=== PATIENT | female | born 1965 | race Caucasian/White ===

== ENCOUNTER → 2024-08-15 12:34 | Outpatient (REF) | payer OTHER, SELFPAY | LOC: HWWDC 12:34 | PROVIDERS: ATTENDING PHYSICIAN Nurse Practitioner Family; FAMILY PHYSICIAN Internal Medicine | DX: Z12.31 Encounter for screening mammogram for malignant neoplasm of breast (principal) | CPT/HCPCS: 77063; 77067 ==

== ENCOUNTER → 2025-02-11 13:24 | Outpatient (REF) | payer OTHER, SELFPAY | LOC: HWRAD 13:24 | PROVIDERS: ATTENDING PHYSICIAN Obstetrics & Gynecology; FAMILY PHYSICIAN Internal Medicine | DX: N95.0 Postmenopausal bleeding (principal) | CPT/HCPCS: 76830; 76856 ==

== ENCOUNTER 2025-04-23 06:24 | Day surgery (SDC) | payer OTHER, SELFPAY ==
[2025-04-10 09:10] VITALS: BMI 30.6
[2025-04-10 10:47] LABS: Hematocrit 43.4 % (37.0-47.0); Hemoglobin 14.3 g/dL (12.0-16.0); Mean Corp Hgb Conc. 32.9 g/dL (33.0-37.0); Mean Corpuscular Volume 91.6 fL (81.0-99.0); Nucleated Red Blood Cells % 0 %; Platelet Count 302 10^3/uL (130-400); Red Cell Dist. Width 13.3 % (11.5-14.5)
[2025-04-10 12:55] LABS: AST (SGOT) 26 U/L (14-36); Albumin 5.0 g/dl (3.5-5.0); Alkaline Phosphatase 59 U/L (38-126); Blood Urea Nitrogen 20 mg/dl (7-17); Calcium 10.4 mg/dl (8.4-10.2); Carbon Dioxide 28 mmol/L (22-30); Chloride 107 mmol/L (98-107); Estimated Creatinine Clearance 97 ml/min; Glucose 89 mg/dl (70-99); HDL Cholesterol 60 mg/dl; LDL Cholesterol, Calculated 135 mg/dl; Potassium 4.9 mmol/L (3.5-5.1); Sodium 142 mmol/L (135-145); Total Protein 8.2 g/dl (6.3-8.2); Very Low Density Lipoprotein 34 mg/dl (0-30); eGFR > 60.00
[2025-04-10 13:13] LABS: Beta HCG Quantitative < 2.39 mIU/ml
[2025-04-10 13:23] LABS: ALT (SGPT) 22 U/L (0-35)
[2025-04-23] VITALS (7 sets, daily range): BP systolic 111–127; BP diastolic 68–90; BMI 30.6
[2025-04-23] MEDS: NORMOSOL-R/PLASMALYTE-A 1000 IV (10:53)
--- NOTE | 2025-04-23 14:15 | SUR.PHASEI ---
Rec'd sleepy on stretcher, oriented x3 by RN reassured, positioned for comfort, Dr Diaz in
--- NOTE | 2025-04-23 14:21 | SUR.PHASEI ---
More alert, warm blanket to abd, mushtaq well
[2025-04-23] MEDS: MORPHINE SULFATE 2 MG IV (14:25)
--- NOTE | 2025-04-23 14:33 | SUR.PHASEI ---
Cramps cont ,medicated mushtaq well, ice chips given mushtaq well
== END 2025-04-23 15:30 | disposition home or self-care (01) ==
LOC: SDS 06:24
PROVIDERS: ATTENDING PHYSICIAN Obstetrics & Gynecology; FAMILY PHYSICIAN Internal Medicine
DX: N84.1 Polyp of cervix uteri (principal); N95.0 Postmenopausal bleeding
CPT/HCPCS: 58558; 36415; 80053; 80061; 84702; 85025; 86850; 86900; 86901; 88305; 93005

== ENCOUNTER → 2025-08-20 16:18 | Outpatient (REF) | payer OTHER, SELFPAY | LOC: WDC 16:18 | PROVIDERS: ATTENDING PHYSICIAN Obstetrics & Gynecology; FAMILY PHYSICIAN Internal Medicine | DX: Z12.31 Encounter for screening mammogram for malignant neoplasm of breast (principal) | CPT/HCPCS: 77063; 77067 ==